=== PATIENT | female | born 1995 | race Caucasian/White ===

== ENCOUNTER 2019-04-19 08:19 | Day surgery (SDC) | payer BC ==
[2019-04-18 11:15] VITALS: BMI 29.2
[~2019-04-19] VITALS: Ht 165.1 cm; Wt 80.8 kg
[2019-04-19] VITALS (17 sets, daily range): BP systolic 101–123; BP diastolic 55–74; PULSE 60–74; RESP 12–21; Ht 165.1 cm; Wt 80.8 kg
[~2019-04-19 08:19] MED LIST: CEFAZOLIN 2 GM/50 ML (PMX) 50 ML IVPB ONE
[2019-04-19] MEDS ORDERED: LACTATED RINGER'S 1,000 ML IV SCH (09:30)
[2019-04-19] MEDS ORDERED: BUPIVACAINE 0.25% (MPF) 30 ML INJ ONE (10:07)
--- NOTE | 2019-04-19 10:15 | PREAC ---
Date/Time of Note Date/Time of Note DATE: 04/19/19 TIME: 10:14 Anesthesia Eval and Record Evaluation Time Pre-Procedure Interview DATE: 04/19/19 TIME: 10:14 Age 23 Sex female NPO: 8 hrs Preoperative diagnosis index finger nerve damage Planned procedure repair of nerve Past Medical History Past Medical History: None Surgery & Anesthesia Issues No known issue Meds Anticoagulation: No Beta Celio within 24 hr: No Reason Beta Celio not given: Pt. not on B-Celio No Active Prescriptions or Reported Meds Current Medications Lactated Ringer's 1,000 ml @ 25 mls/hr Q24H IV Last administered on 04/19/19at 09:18; Admin Dose 25 MLS/HR; Start 04/19/19 at 09:30 Meds reviewed: Yes Allergies Coded Allergies: No Known Allergy (Unverified , 04/19/19) Allergies Reviewed: Yes Labs/Studies Labs Reviewed: Reviewed by anesthesiologist Result Diagram: 04/19/19 0840 Laboratory Tests 04/19/19 08:40 test: Negative Pre-procedure Exam Last vitals Vital Signs Date Temp Pulse Resp B/P (MAP) Pulse Ox O2 O2 Flow FiO2 Time Delivery Rate 04/19/19 97.5 74 16 123/68 95 Room Air 09:06 (86) Airway: Adequate mouth opening, Adequate thyromental dist Mallampati: Mallampati III Teeth: Normal Lung: Normal Heart: Normal ASA Physical Status ASA physical status: 1 Emergency: None Pre-operative Attestations Prior to commencing anesthesia and surgery, the patient was re-evaluated, there was verification of: *The patient's identity *The results of appropriate recent lab work and preoperative vital signs *The above evaluation not changing prior to induction *Anesthetic plan, risk benefits, alternative and complications discussed with patient/family; questions answered; patient/family understands, accepts and wishes to proceed. DESIREE GARRIDO DO April 19, 2019 10:15
[2019-04-19] MEDS ORDERED: MIDAZOLAM 1 MG/ML 2 ML INJ ONE (10:18)
[2019-04-19] MEDS ORDERED: PROPOFOL 20 ML ONE (10:22)
[2019-04-19] MEDS ORDERED: FENTAnyl 50 MCG/ML VIAL ONE (10:22)
[2019-04-19] MEDS ORDERED: LIDOCAINE 2% (SDV) 5 ML INJ ONE (10:22)
[2019-04-19] MEDS ORDERED: HYDROmorphONE 1 MG/5 ML IV SYRINGE IV PRN ×3 (10:30)
[2019-04-19] MEDS ORDERED: OXYCODONE/ACETAMINOPHEN (5/325) TAB PO PRN ×2 (10:30)
[2019-04-19] MEDS ORDERED: ONDANSETRON 4 MG INJ IV PRN (10:30)
[2019-04-19] MEDS ORDERED: ROPIVACAINE 0.5 % 30 ML VIAL ONE (10:31)
[2019-04-19] MEDS ORDERED: CEFAZOLIN 1 GM INJ ONE (10:36)
[2019-04-19] MEDS ORDERED: ONDANSETRON 4 MG INJ ONE (10:37)
[2019-04-19] MEDS ORDERED: BACITRACIN/POLYMYXIN 28.35 GM OINT TOP ONE (11:19)
--- NOTE | 2019-04-19 11:40 | PAC ---
Date/Time of Note Date/Time of Note DATE: 04/19/19 TIME: 11:39 Post-Anesthesia Notes Post-Anesthesia Note Last documented vital signs Vital Signs Date Temp Pulse Resp B/P (MAP) Pulse Ox O2 O2 Flow FiO2 Time Delivery Rate 04/19/19 98 80 16 113/66 100 Room Air 1140 Activity: WNL Respiratory function: WNL Cardiovascular function: WNL Mental status: Baseline Pain reasonably controlled: Yes Hydration appropriate: Yes Nausea/Vomiting absent: Yes DESIREE GARRIDO DO April 19, 2019 11:40
--- NOTE | 2019-04-19 11:46 | OPR ---
Date/Time of Note Date/Time of Note DATE: 04/19/19 TIME: 11:38 Operative Report Procedure Date: April 19, 2019 Preoperative Diagnosis Left index finger radial digital nerve laceration Postoperative Diagnosis Left index finger radial digital nerve partial laceration Operation/Procedure Performed Left index finger radial digital nerve repair with conduit Surgeon see signature line Seo Analyst None Anesthesia Type: general Anesthesiologist: QIAN GARRIDO MD Tourniquet Time: 40 minutes Estimated Blood Loss: minimal Transfusion none Specimen None Grafts/Implants Axogen 1mm x15mm nerve conduit Complications none Pt Condition Post Procedure: stable Disposition: PACU Indications Patient is a 23-year-old [id number] female who sustained a laceration to her left index finger from a knife on March 25. Then with numbness on the radial border of her index finger. She has a laceration on the radial border of the middle phalanx of the index finger. Flexor tendons were intact. She is indicated for surgery to explore the nerve and to perform nerve repair with either conduit versus allograft. We discussed risks of surgery which include but are not limited to those infection, pain, bleeding, neurovascular injury, persistent numbness, no improvement, stiffness, swelling, and other anesthesia related risks. She elects to proceed. Procedure Description Patient was identified in preoperative holding area. Upper extremity was marked and patient was brought back to operating room. She is placed supine and general endotracheal anesthesia was induced. 2 g of Ancef IV was administered. A nonsterile tourniquet was applied to left arm. A digital block of the left index finger was performed by anesthesiologist. Arm was prepped and draped in usual sterile fashion. Timeout was performed indicating correct patient site and procedure. Arm was exsanguinated Esmarch and tourniquet was elevated to 250 minutes mercury. A mid axial incision was marked out over the radial border of the index finger. This was angled distally over the DIP crease in oblique fashion. Skin was incised sharply with a knife. The skin flaps were elevated bluntly. The radial digital neurovascular bundle was isolated. I did extend the incision proximally across the PIP crease in the oblique fashion. The radial digital nerve was noted to be partially lacerated at the midportion of the middle phalanx. Approximately 50% of it was lacerated. A complete neurolysis was performed. I decided to repair this with a nerve wrap. A 1 mm x 15 mm nerve connector was soaked in saline. It was then cut in half longitudinally. It was wrapped over the nerve. 3 sutures using 8-0 nylon were placed proximal distal and in the middle of the conduit. Tourniquet was released. Hemostasis was achieved with bipolar cautery. Skin was closed with interrupted horizontal mattress 4-0 nylon suture. Sterile dressing with Adaptic 4 x 4 gauze was applied followed by a short arm splint along the volar aspect of the index and long finger. There is brisk capillary refill and all sponge and instrument counts were correct at the end of the case. She was extubated and taken to PACU stable condition. Plan: The splint will be taken down at 2 weeks and she will begin range of motion. FELICIANO VALLES MD April 19, 2019 11:46
== END 2019-04-19 14:07 | disposition home or self-care (01) ==
LOC: SDS 08:19
PROVIDERS: ATTEND Orthopaedic Surgery
DX: S64.491D Injury of digital nerve of left index finger, subsequent encounter (principal); W26.0XXD Contact with knife, subsequent encounter
CPT/HCPCS: 64910; 81001; 85025; J0690; J2250; J2405; J2795; J3010; 84703